=== PATIENT | male | born 1975 | race Caucasian/White ===

== ENCOUNTER 2021-03-13 07:51 | Outpatient (RCR) | payer OTHER, SELFPAY ==
--- NOTE | 2021-03-23 09:05 | HP.FCE ---
Floor (Occasional 1-33% of Day): 50# Floor (Frequent 34-66% of Day): 25# Floor (Constant 67-100% of Day): NA Floor PDL: Medium Knee (Occasional 1-33% of Day): 50# Knee (Frequent 34-66% of Day): 25# Knee (Constant 67-100% of Day): NA Knee PDL: Medium Waist (Occasional 1-33% of Day): 50# Waist (Frequent 34-66% of Day): 25# Waist (Constant 67-100% of Day): NA Waist PDL: Medium Shoulder (Occasional 1-33% of Day): 50# Shoulder (Frequent 34-66% of Day): 25# Shoulder (Constant 67-100% of Day): NA Shoulder PDL: Medium Overhead (Occasional 1-33% of Day): 25# Overhead (Frequent 34-66% of Day): 12.5# Overhead (Constant 67-100% of Day): NA Overhead PDL: Light Comments: pt demo with good lifting mechanics Bending: Occasional Ability (1-33% of day) Squatting: Occasional Ability (1-33% of day) Kneeling: Occasional Ability (1-33% of day) Comments: with use of external support Reaching out: Frequent Ability (34-66% of day) Reaching up: Frequent Ability (34-66% of day) Sitting: Frequent Ability (34-66% of day) Walking: Frequent Ability (34-66% of day) Standing: Occasional Ability (1-33% of day) Comments: with shifting body weight Duration Sedentary Sedentary Light Light Light Medium Medium Medium Heavy Very Heavy Heavy Occasional (0-33% of day) Frequent (34-66% of day) Constant (67-100% of day) 10 # Negligible Negligible 15 # 8 # Negligible 20 # 10# Negli. 35 # 18 # 7 # 50 # 25 # 10 # 75 # 100 # >100 # 38 # 50 # >50 # 15 # 20 # >20 # Weight:: 86.183 kg Hand Dominance: left Medical History Including Restrictions: This 46 year old male was seen for FCE. Pt states he was in good health until he had back issues in 2018. Pt states he had back sx in 2019 at lumbar L5-S1. pt states this sx went well but he developed an infection was placed on antibiotics and was in a coma due to systemic infection. pt states 6 month later he states he was on antibiotics for about a year. pt states following the 2nd sx (discectomy with fusion at L5-S1 levels). pt states his pain did not change from his 2nd sx. pt states he did have physical therapy for 12 weeks following 1st and 2nd sx. Pt states he was given a HEP but is not doing them-(on occasions) pt does not exercise on a regular basis. pt states he went on visit to a pain mtg. and had one injection but this did not help- pt states he was there in 2020 and is scheduled to return in the further but did not know date. Diagnoses: Degeneration of lumbosacral intervertebral disc dx 2019. Lumbosacral spondylosis. Lumbosacral stenosis. Lumbosacral radiculopathy. Arthropathy of lumbar facet. Lumbar post-laminectomy syndrome Symptoms: Low Back pain. Stiffness. Neuropathy Pain: Pt reports his pain level now is 8/10. Pt states he will take over the counter pain main medication if pain bad. Work History: Pt states he last worked for [employer]. 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 pt states they would work 8 hour days. Pt states prior to working the above occupation he worked at [employer]. 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 Pt states he was required to drive, lift requirement 100# and deliver dairy products. pt states he left this job because he was required to work 10-14 hours. Behavioral: pt cooperative during session. ADLS: Pt lives with Friend in one story home, with 4 with 2 hand rails. Pt states there is a basement with 12 steps with 1 handrail. Pt states he has walk in shower- pt states he has a shower chair by has not used is the last 3 months. PT states he is IND. with bathing and dressing. pt states his girlfriend does all cooking, cleaning, laundry and yard work. Girlfriend does grocery shopping. Pt states his girlfriend does not work outside the home. States she will help him when needed. PT does Drive. ROM: pt demo with ROM of UB all plans of motion WNL. LE WNL. trunk rotation min loss. pt demo all ROM WFL Strength: BUE MMT 5/5 BLE MMT 5/5. noted weakness in bilateral hip abduction 4/4 Right [employer] Strength Average: 111.66 Right [employer] Strength Percentile: 33% Left [employer] Strength Average: 113.33 Left [employer] Strength Percentile: 61% Right Lateral Pinch Average: 15.33 Right Lateral Pinch Percentile: >10% Left Lateral Pinch Average: 19.33 Left Lateral Pinch Percentile: 50% Right Tripod Pinch Average: 16.66 Right Tripod Pinch Percentile: 25% Left Tripod Pinch Average: 12.00 Left Tripod Pinch Percentile: 10% Comments: resting heart rate 98 Sensation: denies in hands Fine Motor: 9 hole peg test. right 22.41 sec. = 25%. left 24. 9 sec. =10% Balance: pt demo with good -normal balance throughout session. Bending: Pt demo the ability to bend forward 3/3x, 10/10x, pt completed 10/10 rapidly ( no change in speed from prior). resting heart rate 98. pts c/o 8/10 low back pain. following this heart rate 83. pt can bend forward on a occasional ability Squatting: pt demo the ability to squat 3/3x, 10/10x and 10x rapidly. heart rate 112. pt states his legs feel tired following task. pt can squat on a occasional ability Kneeling: pt demo the ability to kneel 3/3x, 10/10x and 10/10 rapidly. pts 102. pt c/o back pain 8/10. use of external support. heart rate 118. pt can kneel on occasional ability with external support Reaching out/up: pt demo the ability to reach up/out 3/3x, 10/10x, and 10/10 rapidly while standing. pt can reach out/up on a frequent ability. heart rate at 83 after tasks. Walking: PT ambulated with a reciprocal antalgic gait pattern for 22min. therapist noted a decrease in step length following assessment. pt can walk on a frequent ability. Standing: pt demo the ability to stand for 6 min and then leaned on the wall and stood for another 2min. reported back pain 8/10. pt can stand on a occasional ability with shifting his body weight Sitting: pt demo the ability to sit for 45 min with no apparent or expressed discomfort - pt can sit on a frequent ability . Climbing Stairs: pt demo the ability to ascend and descend 10 steps with a reciprocal step pattern and use of one hand rails with good ability. Floor Lift: pt demo the ability to lift 50# from this level with good lifting mechanics. Knee Lift: pt demo the ability to lift 50# from this level with good lifting mechanics. Waist Lift: pt demo the ability to lift 50# from this level with good lifting mechanics. Shoulder Lift: pt demo the ability to lift 50# from this level with good lifting mechanics. Overhead Lift: pt demo the ability to lift 25# from this level with good lifting mechanics. Carrying: pt carried 35# for 35 feet with good ability. heart rate 118 Comments: pt states pain was about the same- following lifting and push/pull task 8/10 low back pain. push 45# for 20 feet. pull 45# for 30 feet
--- NOTE | 2021-03-23 09:05 | HP.OTFCE.D ---
FCE D/C Summary - Discharge DEYA ARIAS was seen for a one time visit for an FCE on 03/13/21 and is discharged.
== END 2021-03-13 19:00 | disposition home or self-care (01) ==
LOC: OT 07:51
PROVIDERS: PCP Family Medicine; Referring Provider Nurse Practitioner Family; Visit Provider Nurse Practitioner Family
DX: M51.37 Other intervertebral disc degeneration, lumbosacral region (principal); M46.96 Unspecified inflammatory spondylopathy, lumbar region; M47.27 Other spondylosis with radiculopathy, lumbosacral region; M96.1 Postlaminectomy syndrome, not elsewhere classified; M48.07 Spinal stenosis, lumbosacral region
CPT/HCPCS: 97750